=== PATIENT | female | born 1990 | race Caucasian/White ===

== ENCOUNTER 2019-11-28 10:38 | Inpatient (IN) | payer OTHER, SELFPAY ==
[~2019-11-28] VITALS: Ht 162.6 cm; Wt 113.9 kg
[2019-11-28 10:38] VITALS: BP_SYST 150
--- NOTE | 2019-11-28 10:38 | NUR ---
Placed in room 7. Placed on monitoring tech, blood pressure machine and pulse oximeter. To gown for exam. Side rails up.
--- NOTE | 2019-11-28 10:39 | NUR ---
Patient is awake, alert, and oriented x4. Patient arrived from her OB office for vaginal bleeding since September 26, 2019. Patient is complaining of vaginal bleed, headache, cramping, and lower back pain.
[2019-11-28] MEDS ORDERED: NACL 0.9% 1,000 ML IV SCH (10:40)
--- NOTE | 2019-11-28 10:40 | NUR ---
ER Dr. Bowman at bedside examining patient.
[2019-11-28 11:37] LABS: BASOPHILS % (AUTO) 0.4 % (0.0-2.0); CALCIUM 8.8 mg/dL (8.4-11.0); CREATININE 0.75 mg/dL (0.55-1.30); EOSINOPHILS % (AUTO) 0.6 % (0.0-4.0); LYMPHOCYTES # (AUTO) 1.8 K/uL (1.0-5.5); LYMPHOCYTES % (AUTO) 28.3 % (20.5-51.5); MEAN CORPUSCULAR HEMOGLOBIN 23 pg (27-31); MEAN CORPUSCULAR HGB CONC 32 % (32-36); MEAN CORPUSCULAR VOLUME 71 fL (79.0-98.0); MONOCYTES # (AUTO) 0.3 K/uL (0.0-1.0); MONOCYTES % (AUTO) 4.9 % (1.7-9.3); NEUTROPHILS # (AUTO) 4.2 K/uL (1.8-7.7); NEUTROPHILS % (AUTO) 65.8 % (40.0-70.0); PLATELET COUNT (AUTO) 343 K/uL (130-430); POTASSIUM 4.2 mmol/L (3.5-5.1); RED BLOOD CELL COUNT(AUTO) 2.45 MIL/uL (4.2-6.2); RED CELL DISTRIBUTION WIDTH 15.1 % (9.0-15.0); WHITE BLOOD COUNT (AUTO) 6.3 K/uL (4.8-10.8)
[2019-11-28 11:41] LABS: HEMATOCRIT 17.4 % (36-48); HEMOGLOBIN 5.6 g/dL (12.0-16.0)
[2019-11-28 11:43] LABS: PROTHROMBIN TIME 9.6 SECS (9.5-12.5)
[2019-11-28 11:44] LABS: ALBUMIN 3.2 g/dL (3.4-4.8); TOTAL BILIRUBIN 0.2 mg/dL (0.0-1.0)
--- NOTE | 2019-11-28 11:48 | NUR ---
Bob called and left phone number [phone]. States he was tested positive for COVID and has been in quarantine x 5 weeks. He has been informed that visitors are not permitted at this time, but his phone number is noted as the main point of contact.
[2019-11-28] MEDS: D5LR 1,000 ML IV SCH ×2 (12:15→20:15)
--- NOTE | 2019-11-28 12:15 | NUR ---
Medication reconciliation completed with information provided by patient. Any prior medication reconciliation on file was reviewed and corrected.
--- NOTE | 2019-11-28 12:16 | NUR ---
Patient will be admitted to care of Dr. Jarrell. Admitted to telemetry unit. Waiting for room placement. Belongings list completed. Complete and up to date summary report printed. SBAR report to be given at bedside with opportunity for questions.
--- NOTE | 2019-11-28 13:05 | NUR ---
DR SIMPSON HERE TO EVALUATE PT.
--- NOTE | 2019-11-28 13:05 | NUR ---
Dr. Ball onsite to perform pelvic exam.
[2019-11-28 13:09] LABS: BILIRUBIN,URINE NEGATIVE (NEGATIVE); BLOOD, URINE 3+ (NEGATIVE); COLOR,URINE YELLOW (YELLOW); GLUCOSE,URINE NEGATIVE (NEGATIVE); KETONES,URINE NEGATIVE (NEGATIVE); LEUKOCYTE ESTERASE ,URINE TRACE (NEGATIVE); NITRITE, URINE NEGATIVE (NEGATIVE); PROTEIN URINE NEGATIVE (NEGATIVE); UROBILINOGEN,URINE 0.2 (0.2-1.0)
[2019-11-28 13:10] LABS: CLARITY/URINE SLIGHTLY CLOUDY (CLEAR)
[2019-11-28] MEDS ORDERED: COMMUNICATION ORDER XX ONE (13:45)
[2019-11-28] MEDS ORDERED: ONDANSETRON 4 MG ODT TAB PO PRN (13:45)
[2019-11-28 14:03] LABS: BACTERIA,URINE MODERATE /HPF (None Seen)
--- NOTE | 2019-11-28 14:45 | NUR ---
Transfer to 118 via ACLS protocol. Licensed nurse present. IV present no signs or symptoms of infiltration.
--- NOTE | 2019-11-28 14:50 | NUR ---
ADMISSION NOTE RECEIVED PT VIA AZEEM BY HEAD START COORDINATOR. PT AOX4, AMBULATES TO BED WITH STEADY GAIT. VSS. PT ON ROOM AIR SATURATING AT 100%. DENIES ANY SOB AT THIS TIME. CALL LIGHT WITHIN REACH, BED IN LOW AND LOCKED POSITION WITH BED ALARM ON.
--- NOTE | 2019-11-28 15:43 | NUR ---
DR. SIMPSON SPOKE WITH MD VIA PHONE, UPDATED MD ON PT STATUS. NEW ORDERS RECEIVED FOR PAIN MEDICATION AND AUSTIN CATHETER INSERTION, NUMBER PAD COUNT. VERIFIED ORDER WITH READ BACK.
[2019-11-28 16:00] VITALS: BP_SYST 129
[2019-11-28] MEDS ORDERED: ACETAMINOPHEN 500 MG TABLET PO PRN (16:15)
[2019-11-28] MEDS ORDERED: ZOLPIDEM TARTRATE 5 MG TABLET PO PRN (16:15)
[2019-11-28] MEDS: IBUPROFEN 800 MG TABLET PO PRN ×2 (16:50→20:11)
--- NOTE | 2019-11-28 16:50 | NUR ---
AUSTIN INSERTED/PAIN MEDICATION IBUPROFEN ADMINISTERED FOR HEADACHE. EDUCATED PT ON USE AND PURPOSE OF AUSTIN CATHETER. PT VERBALIZED UNDERSTANDING. AUSTIN INSERTED, 500CC OUTPUT, CLEAR AND YELLOW. PT TOLERATED WELL, DENIES ANY PAIN DURING OR AFTER. EDUCATED PT ON NUMBER PAD COUNT, PT VERBALIZED UNDERSTANDING.
--- NOTE | 2019-11-28 18:53 | NUR ---
BLOOD TRANSFUSION STARTED VSS. PT AWAKE, DENIES ANY DISCOMFORT OR ABNORMAL REACTION. WILL CONTINUE TO MONITOR.
--- NOTE | 2019-11-28 19:08 | NUR ---
CLOSING NOTE PT AWAKE, ALERT AND ORIENTED, EATING DINNER. BLOOD INFUSING AT THIS TIME. PT DENIES ANY RASH, SOB, OR ABNORMAL REACTION. CALL LIGHT WITHIN REACH, BED IN LOW AND LOCKED POSITION. EDUCATED PT ON USE AND PURPOSE OF SAFETY AND BED ALARM, PT VERBALIZED UNDERSTANDING, PT REFUSING BED ALARM. RE EDUCATED PT ON NUMBER PAD COUNT, PT VERBALIZED UNDERSTANDING. ALL NEEDS MET THROUGHOUT SHIFT. PT CARE ENDORSED TO PRECISION PRINTING WORKER RNBOB. ISOLATION PRECAUTIONS REMAIN IN PLACE.
--- NOTE | 2019-11-28 19:30 | NUR ---
Opening Notes Patient is resting in bed. States she feels tired. Breathing is even and unlabored. No signs of distress noted. Right arm AC 20G is patent and infusing blood per orders. Laureano catheter is patent and draining clear yellow urine. Patient was educated to not throw away menstrual pads , as we are counting them per orders. Patient verbalized an understanding. Patient does not have any other needs at this time. Bed is locked in the lowest position with call light within reach. Safety precautions are in place.
[2019-11-28 19:42] VITALS: BP_SYST 135
[2019-11-28 20:00] VITALS: BP_SYST 134
--- NOTE | 2019-11-28 22:00 | NUR ---
BT Complete First unit of blood is complete. No adverse symptoms experienced. Patient tolerated well.
--- NOTE | 2019-11-28 22:40 | NUR ---
MD Called MD called to verify blood draw orders. New orders given: Draw CBC hour after unit 1 and unit 2. Start next unit right after blood draw, RN does not have to wait for results.
--- NOTE | 2019-11-28 23:30 | NUR ---
CRITICAL VALUE: Lab called and stated the patient had critical values. Hgb 6.6, Hct 20.3. DALJIT Solo was in patient room so I endorsed the values to her.
[2019-11-28 23:43] LABS: BASOPHILS % (AUTO) 0.5 % (0.0-2.0); EOSINOPHILS # (AUTO) 0.1 K/uL (0.0-0.4); EOSINOPHILS % (AUTO) 0.9 % (0.0-4.0); LYMPHOCYTES # (AUTO) 2.3 K/uL (1.0-5.5); LYMPHOCYTES % (AUTO) 28.1 % (20.5-51.5); MEAN CORPUSCULAR HEMOGLOBIN 24 pg (27-31); MEAN CORPUSCULAR HGB CONC 33 % (32-36); MEAN CORPUSCULAR VOLUME 75 fL (79.0-98.0); MONOCYTES # (AUTO) 0.5 K/uL (0.0-1.0); NEUTROPHILS # (AUTO) 5.4 K/uL (1.8-7.7); NEUTROPHILS % (AUTO) 64.5 % (40.0-70.0); PLATELET COUNT (AUTO) 323 K/uL (130-430); RED BLOOD CELL COUNT(AUTO) 2.72 MIL/uL (4.2-6.2); RED CELL DISTRIBUTION WIDTH 17.4 % (9.0-15.0); WHITE BLOOD COUNT (AUTO) 8.3 K/uL (4.8-10.8)
--- NOTE | 2019-11-28 23:55 | NUR ---
BT INITIATION: Consent signed per patient agreeing to administration of blood. Blood has been type and crossmatched. Blood sent from blood bank. Information on unit of blood checked against patient wristband at bedside by two nurses. All information matches. Patient or responsible constitution party informed of potential complications associated with blood transfusion. Informed of possible transfusion reaction symptoms. Aware of need to notify nurse at once of itching, shortness of breath, flushing, feeling of impending doom, or other symptoms not previously present. Vital signs taken within 5 minutes prior to initiation of transfusion. RN will remain with patient for first 15 minutes of transfusion at which time vital signs will be re-assessed.
[2019-11-28 23:57] LABS: HEMATOCRIT 20.3 % (36-48); HEMOGLOBIN 6.6 g/dL (12.0-16.0)
[2019-11-29] VITALS: BP_SYST 116
--- NOTE | 2019-11-29 00:10 | NUR ---
15 Minute after BT Initiation: Patients vital signs were take and are stable. No signs or symptoms of adverse blood transfusion reaction.
--- NOTE | 2019-11-29 02:20 | NUR ---
BT Complete First unit of blood is complete. No adverse symptoms experienced. Patient tolerated well.
[2019-11-29 03:31] LABS: BASOPHILS % (AUTO) 0.4 % (0.0-2.0); EOSINOPHILS # (AUTO) 0.1 K/uL (0.0-0.4); EOSINOPHILS % (AUTO) 0.8 % (0.0-4.0); HEMATOCRIT 23.6 % (36-48); HEMOGLOBIN 7.9 g/dL (12.0-16.0); LYMPHOCYTES # (AUTO) 2.3 K/uL (1.0-5.5); LYMPHOCYTES % (AUTO) 26.6 % (20.5-51.5); MEAN CORPUSCULAR HEMOGLOBIN 25 pg (27-31); MEAN CORPUSCULAR HGB CONC 33 % (32-36); MEAN CORPUSCULAR VOLUME 76 fL (79.0-98.0); MONOCYTES # (AUTO) 0.6 K/uL (0.0-1.0); MONOCYTES % (AUTO) 6.4 % (1.7-9.3); NEUTROPHILS # (AUTO) 5.8 K/uL (1.8-7.7); NEUTROPHILS % (AUTO) 65.8 % (40.0-70.0); PLATELET COUNT (AUTO) 309 K/uL (130-430); RED CELL DISTRIBUTION WIDTH 18.8 % (9.0-15.0); WHITE BLOOD COUNT (AUTO) 8.8 K/uL (4.8-10.8)
--- NOTE | 2019-11-29 04:15 | NUR ---
15 Minute after BT Initiation: Patients vital signs were take and are stable. No signs or symptoms of adverse blood transfusion reaction.
--- NOTE | 2019-11-29 07:33 | NUR ---
Closing Notes/ End BT Patient is resting in bed. Breathing is even and unlabored. No signs of distress noted. Third unit of blood was completed at 0700, patient did not show any signs or symptoms of BT reaction. Right arm AC 20G is patent and infusing per orders. Laurenao catheter is patent and draining clear yellow urine. Patient was educated to not throw away menstrual pads , as we are counting them per orders. Patient verbalized an understanding. All needs were met throughout shift. Bed is locked in the lowest position with call light within reach. Safety precautions are in place. Droplet and contact precautions were met all shift. Endorse care to dayshift DALJIT Lawrence.
[2019-11-29 08:29] VITALS: BP_SYST 114
--- NOTE | 2019-11-29 08:32 | NUR ---
AM ROUNDS: Patient is oriented x4. Ambulates independently. Current pad with moderate blood stain. Denies dizziness. Call light within reach. Addendum: 11/29/19 at 1415 by Melinda Correa RN Laureano catheter was removed. Will monitor voiding.
[2019-11-29 08:34] LABS: BASOPHILS # (AUTO) 0.1 K/uL (0.0-0.2); BASOPHILS % (AUTO) 0.7 % (0.0-2.0); EOSINOPHILS # (AUTO) 0.1 K/uL (0.0-0.4); HEMATOCRIT 26.7 % (36-48); HEMOGLOBIN 8.9 g/dL (12.0-16.0); LYMPHOCYTES # (AUTO) 2.1 K/uL (1.0-5.5); LYMPHOCYTES % (AUTO) 22.3 % (20.5-51.5); MEAN CORPUSCULAR HEMOGLOBIN 25 pg (27-31); MEAN CORPUSCULAR HGB CONC 33 % (32-36); MEAN CORPUSCULAR VOLUME 76 fL (79.0-98.0); MONOCYTES # (AUTO) 0.6 K/uL (0.0-1.0); MONOCYTES % (AUTO) 6.5 % (1.7-9.3); NEUTROPHILS # (AUTO) 6.6 K/uL (1.8-7.7); NEUTROPHILS % (AUTO) 69.5 % (40.0-70.0); PLATELET COUNT (AUTO) 319 K/uL (130-430); RED CELL DISTRIBUTION WIDTH 18.3 % (9.0-15.0); WHITE BLOOD COUNT (AUTO) 9.5 K/uL (4.8-10.8)
--- NOTE | 2019-11-29 09:45 | NUR ---
[facility] 4th unit: Unit was started after checking all the informations with another RN. Patient is aware of transfusion reactions to watch for.
[2019-11-29] MEDS: IBUPROFEN 800 MG TABLET PO PRN (09:58)
[2019-11-29 12:09] VITALS: BP_SYST 137
--- NOTE | 2019-11-29 12:30 | NUR ---
Rounds: Up to the bathroom. No dizziness. Sanitary pad with minimal blood stain.
--- NOTE | 2019-11-29 13:15 | NUR ---
Transfusion Completion: Blood transfusion is completed without any reactions.
[2019-11-29 13:55] VITALS: BP_SYST 197
[2019-11-29 15:06] LABS: BASOPHILS # (AUTO) 0.1 K/uL (0.0-0.2); BASOPHILS % (AUTO) 0.5 % (0.0-2.0); EOSINOPHILS # (AUTO) 0.1 K/uL (0.0-0.4); EOSINOPHILS % (AUTO) 0.5 % (0.0-4.0); HEMATOCRIT 31.2 % (36-48); HEMOGLOBIN 10.2 g/dL (12.0-16.0); LYMPHOCYTES # (AUTO) 2.3 K/uL (1.0-5.5); LYMPHOCYTES % (AUTO) 20.6 % (20.5-51.5); MEAN CORPUSCULAR HEMOGLOBIN 25 pg (27-31); MEAN CORPUSCULAR HGB CONC 33 % (32-36); MEAN CORPUSCULAR VOLUME 78 fL (79.0-98.0); MONOCYTES # (AUTO) 0.7 K/uL (0.0-1.0); MONOCYTES % (AUTO) 6.5 % (1.7-9.3); NEUTROPHILS % (AUTO) 71.9 % (40.0-70.0); PLATELET COUNT (AUTO) 306 K/uL (130-430); RED CELL DISTRIBUTION WIDTH 18.1 % (9.0-15.0); WHITE BLOOD COUNT (AUTO) 11.1 K/uL (4.8-10.8)
--- NOTE | 2019-11-29 16:45 | NUR ---
Discharge: Discharged home per MD. Home isolation instruction provided. Mask was given to the patient and for the dedicated intermodal truck driver. Instructed to roll windows down, no ibuprofen, no steroids. Verbalized understanding. All belongings returned.
== END 2019-11-29 16:45 | disposition home or self-care (01) | DRG 761 ==
LOC: SED 10:38 → SMU 12:04 → EEVIPCON 12:04 → SMU 14:55
PROVIDERS: ADMIT Obstetrics & Gynecology Gynecology; ATTEND Obstetrics & Gynecology Gynecology
PROC: 30233N1 Transfusion of Nonautologous Red Blood Cells into Peripheral Vein, Percutaneous Approach (ICD-10-PCS; principal; 2019-11-28)
DX: N92.1 Excessive and frequent menstruation with irregular cycle (principal); D50.9 Iron deficiency anemia, unspecified; K59.00 Constipation, unspecified; F17.210 Nicotine dependence, cigarettes, uncomplicated; Z20.828 Contact with and (suspected) exposure to other viral communicable diseases; Z88.8 Allergy status to other drugs, medicaments and biological substances; Z79.899 Other long term (current) drug therapy
CPT/HCPCS: 36415; 80053; 81000-TC; 84702-TC; 85025; 85610-TC; 85730-TC; 86886; 86900; 86901; 86920; 87086; 96360; 99285; J7040; J7042; J7120; P9021; U0002

== ENCOUNTER 2019-12-04 07:15 | Day surgery (SDC) | payer OTHER, SELFPAY ==
[2019-12-03 17:56] LABS: BASOPHILS # (AUTO) 0.1 K/uL (0.0-0.2); BASOPHILS % (AUTO) 0.5 % (0.0-2.0); EOSINOPHILS # (AUTO) 0.1 K/uL (0.0-0.4); EOSINOPHILS % (AUTO) 1.3 % (0.0-4.0); HEMOGLOBIN 10.3 g/dL (12.0-16.0); LYMPHOCYTES # (AUTO) 2.1 K/uL (1.0-5.5); MEAN CORPUSCULAR HEMOGLOBIN 25 pg (27-31); MEAN CORPUSCULAR HGB CONC 32 % (32-36); MEAN CORPUSCULAR VOLUME 79 fL (79.0-98.0); MONOCYTES # (AUTO) 0.4 K/uL (0.0-1.0); MONOCYTES % (AUTO) 3.5 % (1.7-9.3); NEUTROPHILS # (AUTO) 8.8 K/uL (1.8-7.7); NEUTROPHILS % (AUTO) 76.7 % (40.0-70.0); PLATELET COUNT (AUTO) 276 K/uL (130-430); RED BLOOD CELL COUNT(AUTO) 4.05 MIL/uL (4.2-6.2); RED CELL DISTRIBUTION WIDTH 19.5 % (9.0-15.0); WHITE BLOOD COUNT (AUTO) 11.5 K/uL (4.8-10.8)
[2019-12-03 18:25] LABS: PROTHROMBIN TIME 9.8 SECS (9.5-12.5)
[2019-12-03 19:25] LABS: ALBUMIN 3.4 g/dL (3.4-4.8); CALCIUM 8.7 mg/dL (8.4-11.0); CREATININE 0.71 mg/dL (0.55-1.30); POTASSIUM 4.2 mmol/L (3.5-5.1); TOTAL BILIRUBIN 0.2 mg/dL (0.0-1.0)
[~2019-12-04] VITALS: Ht 162.6 cm; Wt 113.4 kg
[2019-12-04] MEDS ORDERED: CEFAZOLIN SOD 2 GM in D5W 50 ML IV ONE (07:45)
[2019-12-04] MEDS ORDERED: LR 1,000 ML IV SCH (09:56)
[2019-12-04] MEDS ORDERED: ONDANSETRON HCL 4 MG/2 ML VIAL IVP PRN (10:00)
[2019-12-04] MEDS ORDERED: MEPERIDINE HCL/PF 25 MG/ML DISP.SYRIN IVP PRN (10:00)
[2019-12-04] MEDS ORDERED: MIDAZOLAM HCL 5 MG/ML VIAL (VERSED) IV ONE (10:30)
[2019-12-04] MEDS ORDERED: DEXAMETHASONE SOD PHOSPHATE 4 MG/ML VIAL ONE (10:30)
[2019-12-04] MEDS ORDERED: NS IRRIG SOLN 5000 ML IR ONE (10:30)
[2019-12-04] MEDS ORDERED: ONDANSETRON HCL 4 MG/2 ML VIAL ONE (10:30)
[2019-12-04] MEDS ORDERED: PROPOFOL 200MG/ 20ML VIAL (DIPRIVAN) IV ONE (10:30)
[2019-12-04] MEDS: HYDROmorphone 2 MG/ML VIAL IVP PRN ×3 (10:30→10:50)
[2019-12-04] MEDS ORDERED: fentaNYL CITRATE/PF 100 MCG/2 ML AMP ONE (10:30)
[2019-12-04] MEDS ORDERED: SEVOFLURANE 15 MIN GAS INH ONE (10:30)
[2019-12-04] MEDS ORDERED: LR 1,000 ML IV.SOLN IV ONE (10:30)
[2019-12-04] MEDS ORDERED: HYDROmorphone 1 MG INJ. 1 MG/ML AMPUL ONE ×2 (10:47→11:03)
[2019-12-04 11:47] VITALS: BP_SYST 137
--- NOTE | 2019-12-06 15:07 | NUR ---
Discharge Follow Up Phone Call Phoned patient, , on 11/29/19 and left a voicemail message. Will remain available for return call.
== END 2019-12-04 14:26 | disposition home or self-care (01) ==
LOC: SMU 07:15 → SDS 07:15
PROVIDERS: ATTEND Obstetrics & Gynecology Gynecology
DX: N92.0 Excessive and frequent menstruation with regular cycle (principal); C54.1 Malignant neoplasm of endometrium; G43.909 Migraine, unspecified, not intractable, without status migrainosus; E28.2 Polycystic ovarian syndrome; F41.9 Anxiety disorder, unspecified; E66.9 Obesity, unspecified; Z68.41 Body mass index [BMI] 40.0-44.9, adult; D50.9 Iron deficiency anemia, unspecified; F17.210 Nicotine dependence, cigarettes, uncomplicated; Z79.01 Long term (current) use of anticoagulants; Z79.899 Other long term (current) drug therapy
CPT/HCPCS: 36415; 58558; 80053; 84703; 85025; 85610; 85730; 86886; 86900; 86901; 88305; C1819; J0690; J1100; J1170; J2250; J2405; J2704; J3010; J7060; J7120; U0002